=== PATIENT | male | born 1985 | race Caucasian/White ===

== ENCOUNTER 2020-08-19 03:59 | Emergency (ER) | payer OTHER ==
[~2020-08-19] VITALS: Ht 172.7 cm; Wt 125.0 kg
[2020-08-19] MEDS ORDERED: ZIPRASIDONE MESYLATE 20MG/VIAL IM ONE (05:15)
[2020-08-19] MEDS ORDERED: ZIPR20CA2 MT (06:06)
[2020-08-19 06:30] VITALS: BP 112/66
== END 2020-08-19 06:32 | disposition home or self-care (01) ==
LOC: ER 03:59
DX: F28 Other psychotic disorder not due to a substance or known physiological condition (principal); F12.10 Cannabis abuse, uncomplicated
CPT/HCPCS: 93005; 96372; 99283; J3486

== ENCOUNTER 2020-08-26 02:35 | Emergency (ER) | payer OTHER ==
[~2020-08-26] VITALS: Ht 188 cm; Wt 104.0 kg
[~2020-08-26 02:35] MED LIST: ZIPR20CA2 MT
[2020-08-26] MEDS ORDERED: LORAZEPAM 1MG TABLET PO ONE (03:45)
[2020-08-26 03:49] LABS: BASOPHILS % 0.5 % (0.0-2.0); EOSINOPHILS % 1.1 % (0.0-5.0); HEMATOCRIT. 41.2 % (42.0-52.0); HEMOGLOBIN. 13.6 g/dL (14.0-18.0); LYMPHOCYTES % 27.6 % (20.0-50.0); MEAN CORPUSCULAR HEMOGLOBIN 29.2 pg (28.0-32.0); MEAN CORPUSCULAR VOLUME 88.7 fL (80.0-94.0); MEAN PLATELET VOLUME 8.2 fl (7.4-10.4); NEUTROPHILS % 63.8 % (40.0-76.0); PLATELET 243 x1000/uL (130-400); RED BLOOD CELL COUNT 4.64 mill/uL (4.7-6.1); RED CELL DISTRIBUTION WIDTH 13.8 % (11.6-14.6)
[2020-08-26 03:56] LABS: CHLORIDE 106 mEq/L (98-107)
[2020-08-26 04:01] LABS: ETHANOL BLOOD < 10 mg/dL
[2020-08-26 05:21] LABS: CLARITY URINE CLEAR (CLEAR); COLOR URINE YELLOW (YELLOW); KETONES URINE TRACE (NEGATIVE); LEUKOCYTE ESTERASE URINE NEGATIVE (NEGATIVE); NITRITE URINE NEGATIVE (NEGATIVE); OCCULT BLOOD URINE NEGATIVE (NEGATIVE); PROTEIN URINE NEGATIVE (NEGATIVE); SPECIFIC GRAVITY URINE 1.023 (1.005-1.030)
[2020-08-26 05:31] LABS: *AMPHETAMINES SCREEN URINE NEGATIVE (NEGATIVE); *BARBITURATES SCREEN URINE NEGATIVE (NEGATIVE); *BENZODIAZEPINES SCREEN URINE NEGATIVE (NEGATIVE); *COCAINE SCREEN URINE NEGATIVE (NEGATIVE)
[2020-08-26 05:32] LABS: CANNABINOID URINE SCREEN PRESUMTIVE POSITIVE (NEGATIVE); METHADONE URINE SCREEN NEGATIVE (NEGATIVE); OPIATES URINE SCREEN NEGATIVE (NEGATIVE); PHENCYCLIDINE URINE SCREEN NEGATIVE (NEGATIVE)
[2020-08-28 15:04] VITALS: BP 140/60
== END 2020-08-28 15:09 | disposition home or self-care (01) ==
LOC: ER 02:35
DX: F32.9 Major depressive disorder, single episode, unspecified (principal); R44.0 Auditory hallucinations; F41.9 Anxiety disorder, unspecified; F12.10 Cannabis abuse, uncomplicated
CPT/HCPCS: 36415; 80053; 80305; 80320; 81003; 85025; 93005; 99285; C9803; U0003; U0005; G0480